=== PATIENT | male | born 1970 | race Caucasian/White ===

== ENCOUNTER 2019-03-23 19:11 | Emergency (ER) | payer MEDICAID ==
[~2019-03-23] VITALS: Ht 180.3 cm; Wt 75.0 kg
[~2019-03-23 19:11] MED LIST: CEPH-571 PO; CLIN-96 PO; CLIN150C8 PO; LISI-604 PO
[2019-03-23] MEDS ORDERED: CEPH-572 PO (20:36)
[2019-03-23] MEDS ORDERED: SULF1TAB49 PO (20:36)
[2019-03-23 20:47] VITALS: BP 155/110
== END 2019-03-23 20:49 | disposition home or self-care (01) ==
LOC: ER 19:11
DX: L02.415 Cutaneous abscess of right lower limb (principal); I10 Essential (primary) hypertension; Z87.442 Personal history of urinary calculi; Z86.14 Personal history of Methicillin resistant Staphylococcus aureus infection; Z90.89 Acquired absence of other organs; Z98.890 Other specified postprocedural states; Z56.0 Unemployment, unspecified; Z88.0 Allergy status to penicillin; Z88.2 Allergy status to sulfonamides; Z79.899 Other long term (current) drug therapy
CPT/HCPCS: 99283

== ENCOUNTER 2020-04-24 16:46 | Inpatient (IN) | payer MEDICAID ==
[~2020-04-24] VITALS: Ht 180.3 cm; Wt 71.5 kg
[~2020-04-24 16:46] MED LIST changes: -CLIN-96 PO; +CLIN-97 PO
[2020-04-24] MEDS ORDERED: piperacillin/tazo 3.375gm/50ml 50 ML IV ONE (18:05)
[2020-04-24] MEDS ORDERED: vancomycin/NS 1 GM ADD-VANTAGE 250 ML IV ONE (18:05)
[2020-04-24] MEDS ORDERED: normal saline 1000ML IV soln IV ONE (18:05)
[2020-04-24] MEDS ORDERED: clindamycin 600mg/D5W 50ml 50 ML IV ONE (18:05)
[2020-04-24 18:22] LABS: BASOPHILS # (AUTO) 0.1 X10'3 (0-0.2); BASOPHILS % (AUTO) 0.6 % (0-1); EOSINOPHILS # (AUTO) 0.2 X10'3 (0-0.9); EOSINOPHILS % (AUTO) 1.4 % (0-6); HEMATOCRIT 45.3 % (42.0-52.0); LYMPHOCYTES # (AUTO) 1.7 X10'3 (1.1-4.8); LYMPHOCYTES % (AUTO) 10.8 % (21-51); MEAN CORPUSCULAR HEMOGLOBIN 28.9 PG (27.0-31.0); MEAN CORPUSCULAR HGB CONC 33.2 g/dL (33.0-36.5); MEAN CORPUSCULAR VOLUME 87.1 FL (78-98); MEAN PLATELET VOLUME 6.9 FL (7.4-10.4); MONOCYTES # (AUTO) 1.1 X10'3 (0-0.9); MONOCYTES % (AUTO) 6.9 % (2-12); NEUTROPHILS # (AUTO) 12.8 X10'3 (1.8-7.7); NEUTROPHILS % (AUTO) 80.3 % (42-75); PLATELET COUNT 385 X10'3 (140-440); RED CELL DISTRIBUTION WIDTH 13.6 % (11.5-14.5); WHITE BLOOD COUNT 15.9 X10'3 (4.5-11.0)
--- NOTE | 2020-04-24 18:24 | NUR ---
medical technologist chief at bedside for BC and lactic draw.
--- NOTE | 2020-04-24 18:24 | NUR ---
NAVEED Cheatham at bedside for EKG.
[2020-04-24 18:27] LABS: ALANINE AMINOTRANSFERASE 19 U/L (12-78); ALBUMIN 3.6 G/DL (3.4-5.0); ALKALINE PHOSPHATASE 120 IU/L (46-116); ANION GAP 5 (8-16); ASPARTATE AMINO TRANSFERASE 12 U/L (10-37); BILIRUBIN,TOTAL 0.9 MG/DL (0.1-1.0); BLOOD UREA NITROGEN 13 MG/DL (7-18); CHLORIDE 101 MMOL/L (99-107); CREATININE 1.45 MG/DL (0.60-1.10); GLUCOSE 123 MG/DL (70-104); POTASSIUM 3.7 MMOL/L (3.5-5.1); SODIUM 139 MMOL/L (135-145); TOTAL PROTEIN 7.3 G/DL (6.4-8.2); eGFR 51 ML/MIN
--- NOTE | 2020-04-24 18:42 | NUR ---
Pt ambulatory to xray.
[2020-04-24] MEDS ORDERED: normal saline 1000ml 1,000 ML IV ONE (19:05)
--- NOTE | 2020-04-24 19:15 | NUR ---
Dr. Bocanegra at bedside for evaluation.
[2020-04-24] MEDS ORDERED: iohexol 300mg/ml 100ml inj. ONE (19:22)
[2020-04-24 19:43] LABS: C-REACTIVE PROTEIN 3.12 MG/DL (0.0-0.5)
[2020-04-24] MEDS ORDERED: LIDOcaine 1% W/epiNEPHrine 1:200,000 10ml vial IJ ONE ×2 (20:20→20:25)
[2020-04-24] MEDS ORDERED: TETanus/Pertussis (Acell)/Diphther VAC/PF (Tdap-Adult) 0.5ml syringe IMVAC ONE (20:20)
[2020-04-24] MEDS ORDERED: LIDOcaine 1% w/epiNEPHrine 1:200,000 30ml vial IJ ONE (20:25)
[2020-04-24 20:56] LABS: CLARITY,URINE SLIGHTLY CLOUDY (Clear); COLOR,URINE AMBER (Yellow); GLUCOSE, URINE NEGATIVE (Neg); KETONES,URINE NEGATIVE (Neg); LEUKOCYTE ESTERASE ,URINE NEGATIVE (Neg); NITRITES, URINE NEGATIVE (Neg); OCCULT BLOOD,URINE NEGATIVE (Neg); PH,URINE 5.5 (4.8-8.0); PROTEIN,URINE 30 mg/dl (Neg)
[2020-04-24] MEDS ORDERED: ibuprofen tablet 400 MG TABLET PO ONE (21:00)
[2020-04-24 21:07] LABS: UA COLLECTION TYPE URINAL
[2020-04-24 22:12] LABS: MUCUS STRANDS MANY /LPF (Neg); SQUAMOUS EPITHELIAL CELL,UR FEW /LPF (FEW)
[2020-04-24 22:14] LABS: BACTERIA,URINE NONE SEEN /HPF (Neg); RBC,URINE NONE SEEN /HPF (0-2); WBC,URINE NONE SEEN /HPF (0-4)
[2020-04-24 22:15] LABS: CAL OXALATE CRYSTALS 2+ /HPF (NEGATIVE)
[2020-04-24] MEDS ORDERED: HYDROcodone/acetaminophen 5mg/325mg tablet PO PRN (22:25)
[2020-04-24] MEDS ORDERED: HYDROcodone/acetaminophen 10/325mg tab PO PRN (22:25)
[2020-04-24] MEDS ORDERED: potassium Cl 20 mEq SR tablet PO PRN ×2 (22:25)
[2020-04-24] MEDS ORDERED: magnesium hydroxide 30ml (MOM) UD suspension PO PRN (22:25)
[2020-04-24] MEDS ORDERED: ondansetron/PF 4mg/2ml inj IV PRN (22:25)
[2020-04-24] MEDS ORDERED: magnesium 4gm in 100ml NS 100 ML IV PRN (22:25)
[2020-04-24] MEDS ORDERED: diphenhydrAMINE 50 mg/ml inj IV PRN (22:25)
[2020-04-24] MEDS ORDERED: diphenhydrAMINE 25mg capsule PO PRN (22:25)
[2020-04-24] MEDS ORDERED: ipratropium/albuterol 3ml nebule NEB PRN (22:25)
[2020-04-24] MEDS ORDERED: acetaminophen 325mg tablet PO PRN ×2 (22:25)
[2020-04-24] MEDS ORDERED: HYDROmorphone inj. 0.5 MG/0.5 ML DISP.SYRIN IV PRN (22:25)
[2020-04-24] MEDS ORDERED: magnesium 2GM in 50ml NS 50 ML IV PRN (22:25)
[2020-04-24] MEDS ORDERED: potassium CL 10mEq/100ml bag 100 ML IV PRN ×2 (22:25)
[2020-04-24] MEDS ORDERED: mag hydrox/Alum hydrox/simeth 30ml oral suspension PO PRN (22:25)
[2020-04-24] MEDS ORDERED: NO HOME MEDS (22:28)
[2020-04-24] MEDS: normal saline 1000ml 1,000 ML IV SCH (23:00)
[2020-04-24] MEDS ORDERED: haloperidol 5mg tablet PO PRN (23:15)
[2020-04-24] MEDS ORDERED: thiamine inj. 100 MG in normal saline 100ml IV soln 100 ML IV ONE (23:15)
[2020-04-24] MEDS ORDERED: haloperidol lactate 5mg/ml inj IM PRN (23:15)
[2020-04-24] MEDS ORDERED: LORazepam 2 mg/ml vial IV PRN (23:15)
[2020-04-24] MEDS ORDERED: thiamine 100mg/ml 2ml inj. IV ONE (23:25)
--- NOTE | 2020-04-25 00:25 | NUR ---
I have received report from Vito ED RN and had the opportunity to ask questions and assume patient care.
[2020-04-25 00:45] VITALS: BP 147/99
[2020-04-25] MEDS: cefepime inj. 1 GM in normal saline 100ml IV soln 100 ML IV SCH ×3 (02:36→16:37)
[2020-04-25 06:30] LABS: ALANINE AMINOTRANSFERASE 16 U/L (12-78); ALBUMIN 2.7 G/DL (3.4-5.0); ALBUMIN/GLOBULIN RATIO 0.8 (1.1-1.5); ALKALINE PHOSPHATASE 91 IU/L (46-116); ANION GAP 5 (8-16); ASPARTATE AMINO TRANSFERASE 9 U/L (10-37); BILIRUBIN,TOTAL 0.3 MG/DL (0.1-1.0); BLOOD UREA NITROGEN 12 MG/DL (7-18); BUN/CREATININE RATIO 10.6 (5.4-32.0); CALCIUM 8.3 MG/DL (8.5-10.1); CHLORIDE 105 MMOL/L (99-107); CREATININE 1.13 MG/DL (0.60-1.10); GLUCOSE 101 MG/DL (70-104); POTASSIUM 3.5 MMOL/L (3.5-5.1); SODIUM 143 MMOL/L (135-145); TOTAL CARBON DIOXIDE 33.1 MMOL/L (24-32); TOTAL PROTEIN 5.9 G/DL (6.4-8.2); eGFR 68 ML/MIN
[2020-04-25 06:32] LABS: LIPASE 831 U/L (73-393); PHOSPHORUS 3.3 MG/DL (2.3-4.5)
[2020-04-25 06:33] LABS: BASOPHILS # (AUTO) 0.1 X10'3 (0-0.2); BASOPHILS % (AUTO) 0.7 % (0-1); EOSINOPHILS # (AUTO) 0.3 X10'3 (0-0.9); EOSINOPHILS % (AUTO) 2.3 % (0-6); HEMATOCRIT 39.2 % (42.0-52.0); HEMOGLOBIN 13.2 g/dl (14.0-17.9); LYMPHOCYTES # (AUTO) 2.6 X10'3 (1.1-4.8); LYMPHOCYTES % (AUTO) 22.1 % (21-51); MEAN CORPUSCULAR HEMOGLOBIN 29.3 PG (27.0-31.0); MEAN CORPUSCULAR HGB CONC 33.6 g/dL (33.0-36.5); MEAN CORPUSCULAR VOLUME 87.1 FL (78-98); MEAN PLATELET VOLUME 6.7 FL (7.4-10.4); MONOCYTES # (AUTO) 1.1 X10'3 (0-0.9); NEUTROPHILS # (AUTO) 7.8 X10'3 (1.8-7.7); NEUTROPHILS % (AUTO) 65.9 % (42-75); PLATELET COUNT 275 X10'3 (140-440); RED BLOOD COUNT 4.51 X10'6 (4.70-6.10); RED CELL DISTRIBUTION WIDTH 13.6 % (11.5-14.5); WHITE BLOOD COUNT 11.8 X10'3 (4.5-11.0)
[2020-04-25] MEDS: vancomycin/NS 1 GM ADD-VANTAGE 250 ML IV SCH ×2 (06:36→17:49)
--- NOTE | 2020-04-25 06:45 | NUR ---
I have received report from ADELAIDE Mayfield and had the opportunity to ask questions and assume patient care
[2020-04-25 08:00] VITALS: BP 138/93
[2020-04-25] MEDS: K and/or MAG REPLACEMENT MC SCH ×2 (08:00→19:04)
[2020-04-25] MEDS ORDERED: thiamine inj. 100 MG, MVI, adult No.4 with vit. K 10 ML in dextrose 5% water 500ml 500 ML IV SCH ×3 (08:00)
[2020-04-25] MEDS ORDERED: folic acid 1mg/0.2ml inj IV SCH (08:00)
[2020-04-25 11:00] VITALS: BP 149/99
[2020-04-25] MEDS: normal saline 1000ml 1,000 ML IV SCH ×2 (12:04→18:25)
[2020-04-25 14:38] LABS: URINE AMPHETAMINE SCREEN POSITIVE (Neg); URINE BARBITUATE SCREEN NEGATIVE (Neg); URINE BENZODIAZEPINES SCREEN NEGATIVE (Neg); URINE CANNABINOID SCREEN POSITIVE (Neg); URINE COCAINE SCREEN NEGATIVE (Neg); URINE METHADONE SCREEN NEGATIVE (Neg); URINE OPIATE SCREEN POSITIVE (Neg); URINE PHENCYCLIDINE SCREEN NEGATIVE (Neg)
[2020-04-25] MEDS: CLINDAMYCIN/D5W 900mg/50ml 50 ML IV SCH ×3 (15:19→23:00)
[2020-04-25 18:00] VITALS: BP 133/87
--- NOTE | 2020-04-25 18:30 | NUR ---
Patient in room [facility]. I have received report from ADELAIDE Wahl and had the opportunity to ask questions and assume patient care.
[2020-04-25] MEDS: lactobacillus rhamnosus 10,000 MMU CELLS/CAPSULE PO SCH (20:00)
[2020-04-26] MEDS: cefepime inj. 1 GM in normal saline 100ml IV soln 100 ML IV SCH ×2 (00:03→11:03)
[2020-04-26 00:15] VITALS: BP 131/84
[2020-04-26] MEDS: normal saline 1000ml 1,000 ML IV SCH (03:10)
[2020-04-26] MEDS ORDERED: VANCOMYCIN LEVEL IV ONE (05:30)
[2020-04-26 06:30] LABS: BASOPHILS % (AUTO) 0.5 % (0-1); EOSINOPHILS # (AUTO) 0.4 X10'3 (0-0.9); EOSINOPHILS % (AUTO) 3.9 % (0-6); HEMATOCRIT 41.6 % (42.0-52.0); LYMPHOCYTES # (AUTO) 2.6 X10'3 (1.1-4.8); LYMPHOCYTES % (AUTO) 25.4 % (21-51); MEAN CORPUSCULAR HEMOGLOBIN 29.3 PG (27.0-31.0); MEAN CORPUSCULAR HGB CONC 33.7 g/dL (33.0-36.5); MEAN CORPUSCULAR VOLUME 86.8 FL (78-98); MEAN PLATELET VOLUME 6.7 FL (7.4-10.4); MONOCYTES # (AUTO) 0.7 X10'3 (0-0.9); NEUTROPHILS # (AUTO) 6.6 X10'3 (1.8-7.7); NEUTROPHILS % (AUTO) 63.2 % (42-75); PLATELET COUNT 308 X10'3 (140-440); RED BLOOD COUNT 4.79 X10'6 (4.70-6.10); RED CELL DISTRIBUTION WIDTH 13.7 % (11.5-14.5); WHITE BLOOD COUNT 10.4 X10'3 (4.5-11.0)
[2020-04-26 06:31] LABS: ALANINE AMINOTRANSFERASE 18 U/L (12-78); ALBUMIN 2.9 G/DL (3.4-5.0); ALBUMIN/GLOBULIN RATIO 0.8 (1.1-1.5); ALKALINE PHOSPHATASE 96 IU/L (46-116); ANION GAP 6 (8-16); ASPARTATE AMINO TRANSFERASE 13 U/L (10-37); BILIRUBIN,TOTAL 0.4 MG/DL (0.1-1.0); BLOOD UREA NITROGEN 11 MG/DL (7-18); BUN/CREATININE RATIO 11.3 (5.4-32.0); CALCIUM 8.7 MG/DL (8.5-10.1); CHLORIDE 101 MMOL/L (99-107); CREATININE 0.97 MG/DL (0.60-1.10); GLUCOSE 109 MG/DL (70-104); POTASSIUM 3.3 MMOL/L (3.5-5.1); SODIUM 138 MMOL/L (135-145); TOTAL CARBON DIOXIDE 31.4 MMOL/L (24-32); TOTAL PROTEIN 6.5 G/DL (6.4-8.2); eGFR 82 ML/MIN
[2020-04-26 06:32] LABS: MAGNESIUM 1.9 MG/DL (1.5-2.4); PHOSPHORUS 3.1 MG/DL (2.3-4.5)
[2020-04-26] MEDS: vancomycin/NS 1 GM ADD-VANTAGE 250 ML IV SCH (06:41)
--- NOTE | 2020-04-26 06:44 | NUR ---
Patient in room [facility]. I have received report from Tran BRYSON and had the opportunity to ask questions and assume patient care.
[2020-04-26 06:49] LABS: LIPASE 3160 U/L (73-393)
--- NOTE | 2020-04-26 06:52 | NUR ---
Student documentation: I have reviewed and agree with all interventions, assessments performed and documented by Cuauhtemoc Carlisle Student Nurse.
--- NOTE | 2020-04-26 06:52 | NUR ---
Problems reprioritized. Patient report given, questions answered & plan of care reviewed with Cuauhtemoc Carlisle Student Nurse. Addendum: 04/26/20 at 0654 by Tran Morales RN Error. Correction: Student Medication Administration: For this medication-pass time frame, all medication were reviewed, dispensed, administered and documented per hospital policy by Cuauhtemoc Carlisle Student Nurse.
--- NOTE | 2020-04-26 06:53 | NUR ---
Problems reprioritized. Patient report given, questions answered & plan of care reviewed with ADELAIDE Hudson.
[2020-04-26] MEDS: lactobacillus rhamnosus 10,000 MMU CELLS/CAPSULE PO SCH (07:34)
[2020-04-26] MEDS: CLINDAMYCIN/D5W 900mg/50ml 50 ML IV SCH (07:36)
[2020-04-26 08:00] VITALS: BP 132/90
[2020-04-26] MEDS ORDERED: heparin, porcine 5000 units/ml vial SQ SCH (08:00)
[2020-04-26] MEDS ORDERED: multivitamins, therapeutics tablet PO SCH (08:00)
[2020-04-26] MEDS: K and/or MAG REPLACEMENT MC SCH (08:00)
[2020-04-26] MEDS ORDERED: thiamine 100mg tablet PO SCH (08:00)
[2020-04-26] MEDS ORDERED: folic acid 1mg tablet PO SCH (08:00)
[2020-04-26] MEDS ORDERED: dextrose 5%-normal saline 1,000 ML IV SCH (11:05)
[2020-04-26 12:00] VITALS: BP 146/99
--- NOTE | 2020-04-26 15:55 | NUR ---
PAGER ID: [phone] MESSAGE: Tay Haskins#[phone] - Pt wants to leave AMA, 1400 vanco infusing he won't wait for that to finished. If he can't eat...He just wants to go. [facility] [id number]
--- NOTE | 2020-04-26 16:05 | NUR ---
Pt went AMA Dr Waters notified. Pt decided to leave AMA because he was upset that he was NPO. Pt educated on the high levels of Lipase and the severity of his maxillary infection which requires IV antibiotics. Pt Verbalizes understanding of all the reasons of why he should stay hospitalized. Pt still decided to leave against medical advise. Pt upset because he wanted to eat. IV cath was removed, intact. Pt packed all of his belongings, got dressed and left. He was also notified that he had a few items downstairs with security to picker feeder. Pt walked to the front by himself and told security that he did not wanted his other belongings. Charge nurse is aware.
--- NOTE | 2020-04-26 16:10 | NUR ---
Pt Left AMA , Occurence report filed #[id number]
[2020-04-28] MEDS ORDERED: VANCOMYCIN LEVEL IV ONE (00:30)
[2020-04-28] MEDS ORDERED: LORazepam 1 MG tablet PO PRN (23:15)
[2020-04-28] MEDS ORDERED: LORazepam 2 mg/ml vial IV PRN (23:15)
== END 2020-04-26 16:05 | disposition left against medical advice (07) | DRG 720 ==
LOC: ER 16:46 → ED HOLD 22:24 → SUR 3N 04-25 00:40
PROVIDERS: ADMIT Family Medicine; ATTEND Family Medicine
DX: A41.9 Sepsis, unspecified organism (principal); F10.20 Alcohol dependence, uncomplicated; I10 Essential (primary) hypertension; K02.9 Dental caries, unspecified; K85.90 Acute pancreatitis without necrosis or infection, unspecified; L02.01 Cutaneous abscess of face; L03.211 Cellulitis of face; Z80.3 Family history of malignant neoplasm of breast; Z80.8 Family history of malignant neoplasm of other organs or systems; Z87.442 Personal history of urinary calculi; Z91.19 Patient's noncompliance with other medical treatment and regimen; Z88.0 Allergy status to penicillin; Z88.5 Allergy status to narcotic agent; Z88.2 Allergy status to sulfonamides; F15.10 Other stimulant abuse, uncomplicated
CPT/HCPCS: 36415; 70487; 71045; 80053; 80202; 80305; 81001; 82948; 83605; 83690; 83735; 83880; 84100; 84145; 84484; 85025; 85610; 85651; 86140; 87040; 87070; 87077; 87081; 87186; 90715; 93005; 94760; 97161; 99285; G0378; J0692; J1644; J2060; J2405; J3370; J3411; J3490; J7030; J7042; J7060; Q9967

== ENCOUNTER 2020-06-09 19:56 | Emergency (ER) | payer MEDICAID ==
[~2020-06-09] VITALS: Ht 180.3 cm; Wt 79.5 kg
[~2020-06-09 19:56] MED LIST changes: -CEPH-571 PO; -CLIN-97 PO; -CLIN150C8 PO; -LISI-604 PO; +NO HOME MEDS
[2020-06-09 19:58] VITALS: BP 161/116
[2020-06-09] MEDS ORDERED: TETanus/Pertussis (Acell)/Diphther VAC/PF (Tdap-Adult) 0.5ml syringe IMVAC ONE (20:15)
[2020-06-09] MEDS ORDERED: LIDOcaine 1% W/epiNEPHrine 1:200,000 10ml vial IJ ONE (20:15)
[2020-06-09] MEDS ORDERED: LIDOcaine 1% w/epiNEPHrine 1:200,000 30ml vial SQ ONE (20:20)
[2020-06-09] MEDS ORDERED: DOXYCYCLINE 100MG CAPSULE PO STA (20:59)
[2020-06-09] MEDS ORDERED: HYDROcodone/acetaminophen 5mg/325mg tablet PO ONE (21:00)
[2020-06-09] MEDS ORDERED: cephalexin 250mg capsule PO ONE (21:00)
[2020-06-09] MEDS ORDERED: HYDR-4383 PO (21:01)
[2020-06-09] MEDS ORDERED: CEPH250T PO (21:01)
[2020-06-09] MEDS ORDERED: DOXY100C76 PO (21:01)
== END 2020-06-09 21:15 | disposition home or self-care (01) ==
LOC: ER 19:57
DX: H60.01 Abscess of right external ear (principal); L72.3 Sebaceous cyst; I10 Essential (primary) hypertension; F15.90 Other stimulant use, unspecified, uncomplicated; Z87.442 Personal history of urinary calculi; Z86.14 Personal history of Methicillin resistant Staphylococcus aureus infection; Z90.89 Acquired absence of other organs; Z98.890 Other specified postprocedural states; Z56.0 Unemployment, unspecified; Z59.0 Homelessness; Z88.0 Allergy status to penicillin; Z88.2 Allergy status to sulfonamides; Z79.2 Long term (current) use of antibiotics; Z79.899 Other long term (current) drug therapy
CPT/HCPCS: 10060; 10061; 90715; 99284

== ENCOUNTER 2021-01-19 18:59 | Emergency (ER) | payer MEDICAID ==
[~2021-01-19] VITALS: Ht 180.3 cm; Wt 72.5 kg
[~2021-01-19 18:59] MED LIST changes: +HYDR-4383 PO
[2021-01-19] MEDS ORDERED: ciprofloxacin 250mg tablet PO ONE (21:45)
[2021-01-19] MEDS ORDERED: CIPR-202 PO (21:47)
[2021-01-19 22:02] VITALS: BP 153/112
== END 2021-01-19 22:03 | disposition home or self-care (01) ==
LOC: ER 19:00
DX: H72.92 Unspecified perforation of tympanic membrane, left ear (principal); H92.02 Otalgia, left ear; I10 Essential (primary) hypertension; F15.90 Other stimulant use, unspecified, uncomplicated; Z87.442 Personal history of urinary calculi; Z86.14 Personal history of Methicillin resistant Staphylococcus aureus infection; Z90.89 Acquired absence of other organs; Z98.890 Other specified postprocedural states; Z56.0 Unemployment, unspecified; Z59.0 Homelessness; Z88.0 Allergy status to penicillin; Z88.2 Allergy status to sulfonamides; Z79.2 Long term (current) use of antibiotics; Z79.899 Other long term (current) drug therapy
CPT/HCPCS: 70450; 99284

== ENCOUNTER 2023-05-18 08:33 | Day surgery (SDC) | payer MEDICAID ==
[2023-05-18] VITALS (10 sets, daily range): BP systolic 112–146; BP diastolic 72–104; PULSE 65–89; RESP 12–16; TEMP 97.5; O2SAT 94–100
[~2023-05-18] VITALS: Ht 180.3 cm; Wt 90.3 kg
[2023-05-18] MEDS ORDERED: albumin 25% 100mL bottle x 1 IV PRN (09:35)
[2023-05-18] MEDS ORDERED: FINA5TAB11 PO (10:04)
[2023-05-18 10:05] LABS: BASOPHILS % (AUTO) 0.7 % (0-1); EOSINOPHILS # (AUTO) 0.3 X10'3 (0-0.9); EOSINOPHILS % (AUTO) 4.8 % (0-6); HEMOGLOBIN 15.5 g/dl (14.0-17.9); LYMPHOCYTES # (AUTO) 1.8 X10'3 (1.1-4.8); LYMPHOCYTES % (AUTO) 31.2 % (21-51); MEAN CORPUSCULAR HEMOGLOBIN 29.8 PG (27.0-31.0); MEAN CORPUSCULAR HGB CONC 34.4 g/dL (33.0-36.5); MEAN CORPUSCULAR VOLUME 86.7 FL (78-98); MEAN PLATELET VOLUME 6.9 FL (7.4-10.4); MONOCYTES # (AUTO) 0.5 X10'3 (0-0.9); MONOCYTES % (AUTO) 8.1 % (2-12); NEUTROPHILS # (AUTO) 3.3 X10'3 (1.8-7.7); NEUTROPHILS % (AUTO) 55.2 % (42-75); PLATELET COUNT 245 X10'3 (140-440); RED BLOOD COUNT 5.19 X10'6 (4.70-6.10); RED CELL DISTRIBUTION WIDTH 13.7 % (11.5-14.5); WHITE BLOOD COUNT 5.9 X10'3 (4.5-11.0)
[2023-05-18] MEDS ORDERED: CYCL-394 PO (10:07)
[2023-05-18] MEDS ORDERED: SERT25TA PO (10:07)
[2023-05-18] MEDS ORDERED: TRAZ-251 PO (10:07)
[2023-05-18] MEDS ORDERED: FLO0.4C PO (10:07)
[2023-05-18 10:16] LABS: PROTHROMBIN TIME 10.3 SECONDS (9.0-12.0)
[2023-05-18] MEDS ORDERED: fentaNYL/PF 50MCG/1 ML 2ML syringe ONE ×2 (10:18→10:53)
[2023-05-18] MEDS ORDERED: midazolam 1 mg/ML 2ml injection ONE ×2 (10:18→10:53)
== END 2023-05-18 12:30 | disposition home or self-care (01) ==
LOC: SSTAY O 08:33
PROVIDERS: ATTEND Radiology Vascular & Interventional Radiology
DX: M89.8X8 Other specified disorders of bone, other site (principal); Z85.46 Personal history of malignant neoplasm of prostate; Z88.0 Allergy status to penicillin; Z88.2 Allergy status to sulfonamides; Z79.899 Other long term (current) drug therapy; F15.90 Other stimulant use, unspecified, uncomplicated; Z79.01 Long term (current) use of anticoagulants; Z80.3 Family history of malignant neoplasm of breast; Z80.8 Family history of malignant neoplasm of other organs or systems
CPT/HCPCS: 20220; 36415; 77012; 85025; 85610; 99152; 99153; J2250; J3010; J7030; 20225; A4615